=== PATIENT | female | born 1995 | race Caucasian/White ===

== ENCOUNTER 2017-05-15 08:39 | Emergency (ER) | payer OTHER ==
[~2017-05-15] VITALS: Ht 165.1 cm; Wt 93.2 kg
[2017-05-15] MEDS ORDERED: ACETAMINOPHEN 325 MG TABLET PO ONE (09:15)
[2017-05-15] MEDS ORDERED: IBUPROFEN 800 MG TABLET PO ONE (09:30)
[2017-05-15] MEDS ORDERED: SODIUM CHLORIDE 0.9% 1,000 ML IV ONE (09:30)
[2017-05-15 10:33] LABS: INFLUENZA TYPE B NEGATIVE FOR TYPE B (NEGATIVE)
[2017-05-15] MEDS ORDERED: AZITHROMYCIN 500 MG/NS 250 ML IV ONE (11:30)
[2017-05-15] MEDS ORDERED: CefTRIAXone 1 GM/DEXTROSE 50 ML IV ONE (11:30)
[2017-05-15 13:16] VITALS: BP 111/62
[2017-05-16] MEDS ORDERED: ACET-2247 PO (10:18)
[2017-05-16] MEDS ORDERED: AZIT250T6 PO (10:18)
== END 2017-05-15 13:26 | disposition home or self-care (01) ==
LOC: EMS 08:42
DX: J18.9 Pneumonia, unspecified organism (principal)
CPT/HCPCS: 71010; 87804; 96365; 96368; 99285; J0456; J0696; J7030

== ENCOUNTER 2017-05-16 10:13 | Emergency (ER) | payer OTHER ==
[~2017-05-16] VITALS: Ht 165.1 cm; Wt 93.2 kg
[2017-05-16] MEDS ORDERED: AZIT250T6 PO (10:18)
[2017-05-16] MEDS ORDERED: ACET-2247 PO (10:18)
[2017-05-16] MEDS ORDERED: ACETAMINOPHEN 325 MG TABLET PO ONE (10:45)
[2017-05-16 12:32] VITALS: BP 134/71
== END 2017-05-16 13:13 | disposition home or self-care (01) ==
LOC: EMS 10:14
DX: J18.9 Pneumonia, unspecified organism (principal)
CPT/HCPCS: 99282; 99283